=== PATIENT | female | born 1930 | race Caucasian/White ===

== ENCOUNTER → 2016-12-28 | Outpatient (CLI) | payer MEDICARE, BC ==
[~2016-12-28] MED LIST: ALLEGRA ALLERG180 MG PO; ASPIRIN81 MG PO; CALCIUM + D 6001 TA1 PO; FISH OIL 1,001000 M1 PO; FOSAMAX70 MG PO; HYDROCODONE-APA1 T55 PO; MEDI-MECLIZINE25 M1 PO; MIRALAX17 GM PO; VITAMIN D250000 UNIT PO; ZETIA PO
--- NOTE | ~2016-12-28 | BD1 ---
[facility] A Service of [facility] & [facility] RADIOLOGY TEXT RESULTS PATIENT: JUAN CARLOS ALEX LOCATION: [facility] : 32 UNIT #: [id number] AGE: [address]: Luis Antonio Henning MD SEX: F ORDER DR: [id number] [facility] [address] [place], [place] [address] [id number] O MR#: [id number] #: [id number] NAME: JUAN CARLOS ALEX : 1930 SEX: F STUDY DATE/TIME: 12/28/2016 12:54 UNIT: [facility] ROOM: STUDY DESCRIPTION: BD Dexa Bone Dens 1+ Site Attending Physician: Luis Antonio Henning M.D. Referring Physician: Luis Antonio Henning M.D. Ordering Physician: Luis Antonio Henning M.D. Primary Care Physician: Luis Antonio Henning M.D. MEDICAL IMAGING REPORT This report is preliminary unless electronic signature is present EXAM DXA scan 12/28/2016 HISTORY Status post menopause with no hormone replacement therapy. Osteopenia. Smoking history for 15 years. FINDINGS Bone mineral density in the lumbar spine from L1-L4 was 0.856 gm/cm2 which is 1.7 standard deviations below the mean when compared to the young adult reference population which is characteristic of osteopenia. Compared with 10/16/2014 there has been an increase in bone mineral density in the lumbar spine of 0.1%. Bone mineral density in the left hip was 0.687 g/cm2 which is 2.1 standard deviations below the mean when compared to the young adult reference population which is characteristic of osteopenia. Compared with 10/16/2014 there has been a decrease in bone mineral density in the left hip of 13.6%. IMPRESSION Bone mineral density in the lumbar spine and left hip characteristic of osteopenia. Compared with 10/16/2014 there has been an increase in bone mineral density in the lumbar spine and a decrease in bone mineral density in the left hip. Dictated by... Duke Mckenna M.D. THIS IS AN ELECTRONICALLY VERIFIED REPORT Duke Mckenna M.D. at 12/29/2016 2:54 PM KRT/edenilson TD: 12/28/2016 18:00 JOB #: [id number] [facility]. [facility] A Service of [facility] & [facility] RADIOLOGY TEXT RESULTS PATIENT: JUAN CARLOS ALEX [id number] [birth year] UNIT #: [id number] AGE: [address]: Luis Antonio Henning MD SEX: F ORDER DR: MEDICAL IMAGING REPORT COPY
--- NOTE | ~2016-12-28 | MY11 ---
[facility] A Service of [facility] RADIOLOGY TEXT RESULTS PATIENT: JUAN CARLOS ALEX LOCATION: [facility] : 31 UNIT #: [id number] AGE: [address]: Luis Antonio Henning MD SEX: F ORDER DR: [id number] [facility] [place], [place] [address] [id number] O MR#: [id number] Acc #: [id number] NAME: JUAN CARLOS ALEX : 1930 SEX: F STUDY DATE/TIME: 12/28/2016 13:08 UNIT: [facility] ROOM: STUDY DESCRIPTION: MY Mammogram Screening Dig Bishop Attending Physician: Luis Antonio Henning M.D. Referring Physician: Luis Antonio Henning M.D. Ordering Physician: Luis Antonio Henning M.D. Primary Care Physician: Luis Antonio Henning M.D. MEDICAL IMAGING REPORT This report is preliminary unless electronic signature is present EXAM Bilateral digital screening mammogram with CAD. DATE OF EXAM 12/28/2016 COMPARISON December 09, 2015, October 16, 2014, October 08, 2013, and May 07, 2012. Mammograms dated June 25, 2007, June 12, 2007, and March 01, 2006. INDICATIONS Breast cancer screening. 86-year-old asymptomatic female. No personal or family history of breast cancer. FINDINGS Breasts are almost entirely fatty. There are no suspicious findings in either breast. IMPRESSION No mammographic evidence of malignancy. Annual screening mammography is recommended for as long as the patient is in good health ([employer]). Patients over the age of 40 are entered into a reminder system with target due date for the next mammogram. A result letter will also be sent to the patient. BIRADS: 1 Negative. [facility] A Service [facility] RADIOLOGY TEXT RESULTS PATIENT: JUAN CARLOS ALEX LOCATION: [facility] : 32 UNIT #: [id number] AGE: [address]: Luis Antonio Henning MD SEX: F ORDER DR: Dictated by... Ahsan Davis M.D. THIS IS AN ELECTRONICALLY VERIFIED REPORT Ahsan Davis M.D. at 12/31/2016 6:39 PM SHO/dann TD: 12/28/2016 19:05 JOB #: [id number] MEDICAL IMAGING REPORT COPY
== END | disposition home or self-care (01) ==
LOC: CWCC 12:24
DX: Z12.31 Encounter for screening mammogram for malignant neoplasm of breast (principal); M89.9 Disorder of bone, unspecified; M85.89 Other specified disorders of bone density and structure, multiple sites
CPT/HCPCS: 77080; G0202